=== PATIENT | female | born 1950 | race American Indian/Alaskan Native ===

== ENCOUNTER 2016-11-12 11:12 | Day surgery (SDC) | payer MEDICARE ==
--- NOTE | 2016-11-09 10:44 | Anesthesia Consultation ---
Anesthesia Consult and Med Hx Date of service: 11/09/16 - Airway Anesthetic Teeth Evaluation: Good ROM Head & Neck: Adequate Mental/Hyoid Distance: Adequate Mallampati Class: Class II Intubation Access Assessment: Probably Good - Pulmonary Exam CTA: Yes - Cardiac Exam Cardiac Exam: RRR - Pre-Operative Health Status ASA Pre-Surgery Classification: ASA3 Proposed Anesthetic Plan: General - Pulmonary Hx Smoking: No Hx Asthma: No Hx Respiratory Symptoms: (h/o whooping cough as a child) Hx Sleep Apnea: No - Cardiovascular System Hx Hypertension: No - Central Nervous System Hx Neuromuscular Disorder: (left hand weakness since childhood) Hx Seizures: No CVA: No Hx Psychiatric Problems: No - Gastrointestinal Hx Gastroesophageal Reflux Disease: Yes (mild) - Endocrine Hx Renal Disease: No Hx Insulin Dependent Diabetes: No Hx Non-Insulin Dependent Diabetes: No - Hematic Hx Anemia: Yes Hx Sickle Cell Disease: No - Other Systems Hx Cancer: Yes (LEFT BREAST, DX: 12/2014, LAST CHEMO 12/2015) Hx Obesity: No
[2016-11-09 11:45] LABS: Basophils % (Auto) 0.7 % (0.0-1.8); Eosinophils % (Auto) 4.4 % (0.0-4.3); Hematocrit 33.6 % (30.3-42.9); Hemoglobin 10.8 gm/dl (10.1-14.3); Mean Corpuscular HGB Conc 32 % (30-34); Mean Corpuscular Hemoglobin 28 pg (28-32); Mean Corpuscular Volume 86 fl (79-97); Platelet Count 278 K/mm3 (140-440); Red Cell Distribution Width 14.4 % (13.2-15.2)
[2016-11-09 11:56] LABS: Alanine Aminotransferase 7 units/L (7-56); Albumin/Globulin Ratio 1.2 %; Alkaline Phosphatase 68 units/L (35-129); Anion Gap 15 mmol/L; BUN/Creatinine Ratio 21.66; Bilirubin,Total 0.3 mg/dL (0.1-1.2); Blood Urea Nitrogen 13 mg/dL (7-17); Calcium 9.1 mg/dL (8.4-10.2); Carbon Dioxide 28 mmol/L (22-30); Chloride 100.9 mmol/L (98-107); Glucose 86 mg/dL (65-100); Potassium 4.1 mmol/L (3.6-5.0); Sodium 140 mmol/L (137-145); Total Protein 7.3 g/dL (6.3-8.2)
[~2016-11-12 11:12] MED LIST: DILAUDID IV PRN; NACL 0.9% 1000 ML 1,000 ML IV SCH; NORCO 5/325 PO PRN; PEPCID PO NR; ZOFRAN IV PRN
[2016-11-12] MEDS ORDERED: NACL BACTERIOSTATIC INFILTRATI ONE (11:39)
[2016-11-12] MEDS ORDERED: DILAUDID IV ONE (11:52)
[2016-11-12] MEDS ORDERED: ANCEF/STERILE WATER 2 GM/20 ML IV NR (12:00)
[2016-11-12] MEDS ORDERED: DIPRIVAN 10 MG/ML IV ONE (12:41)
[2016-11-12] MEDS ORDERED: XYLOCAINE MPF 2% ONE (12:44)
[2016-11-12] MEDS ORDERED: DILAUDID ONE (12:44)
--- NOTE | 2016-11-12 12:57 | Anesthesia Day of Surgery ---
Anesthesia Day of Surgery - Day of Surgery Patient Examined: Yes Patient H&P Reviewed: Yes Patient is NPO: Yes
[2016-11-12] MEDS ORDERED: NACL 0.9% IR ONE (13:00)
[2016-11-12] MEDS ORDERED: ePHEDrine SULFATE ONE (13:38)
[2016-11-12] MEDS ORDERED: MARCAINE 0.25% INFILTRATI ONE (13:45)
[2016-11-12] MEDS ORDERED: ZOFRAN ONE (13:51)
[2016-11-12] MEDS ORDERED: DECADRON ONE (13:51)
--- NOTE | 2016-11-12 14:01 | Discharge Summary ---
Short Stay Discharge Plan Activity: advance as tolerated Diet: regular Wound: per your surgeon's advice
[2016-11-12 15:06] VITALS: BP 103/61
--- NOTE | 2016-11-12 15:09 | Post Anesthesia Evaluation ---
- Post Anesthesia Evaluation Patient Participated: Yes Airway Patent: Yes Stable Respiratory Function: Yes Nausea/Vomiting: No Temp > 96.8F: Yes Pain Manageable: Yes Adequeate Hydration: Yes Anesthesia Complications: No
--- NOTE | 2016-11-30 23:26 | Discharge Summary ---
ADMISSION DIAGNOSIS: Breast cancer, for removal of Infusaport. HISTORY OF PRESENT ILLNESS: This patient was referred to me by Dr. Tosin Foster because of the above. She had breast cancer. She was on chemotherapy, now she is through with her chemotherapy. She came to remove the above. PHYSICAL EXAMINATION: GENERAL: A well preserved morbidly obese female. She is in no distress to me. HEAD AND NECK: Negative. CHEST: Clear. HEART: Heart sounds are normal. BREASTS: Showed status post right breast mastectomy. HOSPITAL COURSE: At this point, she was admitted where she underwent removal of the ports under local standby anesthesia and this was handled. She was then discharged home to be seen in my office in 1 week. FINAL DIAGNOSIS: Cancer of the breast. JOB# [id number] PHONG/RALPH
== END 2016-11-12 15:17 | disposition home or self-care (01) ==
LOC: OR 11:12
PROVIDERS: ATTEND Surgery
DX: C50.912 Malignant neoplasm of unspecified site of left female breast (principal); K21.9 Gastro-esophageal reflux disease without esophagitis; M19.90 Unspecified osteoarthritis, unspecified site; D64.9 Anemia, unspecified; Z98.41 Cataract extraction status, right eye; Z98.42 Cataract extraction status, left eye; Z98.51 Tubal ligation status; Z98.890 Other specified postprocedural states; Z86.73 Personal history of transient ischemic attack (TIA), and cerebral infarction without residual deficits; Z82.49 Family history of ischemic heart disease and other diseases of the circulatory system; Z80.6 Family history of leukemia
CPT/HCPCS: 36415; 36590; 80053; 85025; J0690; J1100; J1170; J2405; J2704; J7030